=== PATIENT | female | born 1995 ===

== ENCOUNTER 2017-07-31 16:27 | Emergency (ER) | payer MEDICAID ==
[2017-07-31 16:34] VITALS: RESP 18; O2SAT 98
--- NOTE | 2017-07-31 17:32 | ED PDOC ---
HPI: Neurologic - General Time Seen by Provider: 07/31/17 16:56 Chief Complaint (Nursing): Weakness/Neurological Deficit Chief Complaint (Provider): Left Facial Numbness and Weakness Source: patient Exam Limitations: no limitations - History of Present Illness Timing/Duration: other (x3days) Allergies/Adverse Reactions: Allergies No Known Allergies Allergy (Verified 05/24/16 13:43) Home Medications: Ambulatory Orders Nitrofurantoin Macrocrystals [Macrobid] 100 mg PO BID #14 cap 05/24/16 predniSONE [predniSONE Tab] 25 mg PO BID 10 Days tab 07/31/17 Additional Complaint(s): Zita Renner is a 22 year old female that presents to the ED with a chief complaint of left facial numbness and weakness that she has been experiencing for the past three days. Patient states that when she drinks, fluids comes out of her mouth. She reports that she has similar symptoms when she was 10 years old , but that they resolved on their own. Patient denies any headache, extremity paresthesias, weakness, rash, or medical problems. NIHSS Stroke Scale - Date/Time Evaluation Performed Date Performed: 07/31/17 When Was NIHSS Performed: Baseline - How Severe is the Stroke Level of Consciousness: 0=Alert LOC to Questions: 0=Both comments correct LOC to commands: 0=Obeys both correctly Best Gaze: 0=Normal Visual: 0=No visual loss Facial: 1=Minor asymmetry Motor Arm - Left: 0=No drift Motor Arm - Right: 0=No drift Motor Leg - Left: 0=No drift Motor Leg - Right: 0=No drift Limb Ataxia: 0=Absent Sensory: 0=Normal Best Language: 0=No aphasia Dysarthia: 0=Normal articulation Extinction & Inattention (Neglect): 0=Normal, no object Score: 1 Past Medical History Reviewed: Historical Data, Nursing Documentation, Vital Signs Vital Signs: Last Vital Signs Temp 98.2 F 07/31/17 16:29 Pulse 69 07/31/17 16:29 Resp 18 07/31/17 16:29 BP 133/81 07/31/17 16:29 Pulse Ox 98 07/31/17 16:29 - Medical History PMH: No Chronic Diseases - Family History Family History: States: Unknown Family Hx - Home Medications Home Medications: Ambulatory Orders Medication Instructions Recorded Nitrofurantoin Macrocrystals 100 mg PO BID #14 cap 05/24/16 [Macrobid] predniSONE [predniSONE Tab] 25 mg PO BID 10 Days tab 07/31/17 - Allergies Allergies/Adverse Reactions: Allergies Allergy/AdvReac Type Severity Reaction Status Date / Time No Known Allergies Allergy Verified 05/24/16 13:43 Review of Systems Skin: Negative for: Rash Neurological: Positive for: Weakness (Left faicla weakness), Numbness (Left facial numbness). Negative for: Headache, Other (Denies extremity paresthesias) Physical Exam - Reviewed Nursing Documentation Reviewed: Yes Vital Signs Reviewed: Yes - Physical Exam Appears: Positive for: Non-toxic, No Acute Distress Head Exam: Positive for: ATRAUMATIC, NORMOCEPHALIC Skin: Positive for: Normal Color, Warm. Negative for: Rash Eye Exam: Positive for: Normal appearance, EOMI, PERRL Neck: Positive for: Normal, Supple Cardiovascular/Chest: Positive for: Regular Rate, Rhythm. Negative for: Murmur Respiratory: Positive for: Normal Breath Sounds. Negative for: Wheezing Gastrointestinal/Abdominal: Positive for: Normal Exam, Soft. Negative for: Tenderness Back: Positive for: Normal Inspection. Negative for: L CVA Tenderness, R CVA Tenderness Extremity: Positive for: Normal ROM. Negative for: Deformity, Swelling Neurologic/Psych: Positive for: Alert, Oriented (x3), Cerebellar Tests (normal) , Gait (steady), Facial Droop (Left facial droop, forehead is affected). Negative for: Motor/Sensory Deficits (Negative pronator drift), Aphasia - ECG O2 Sat by Pulse Oximetry: 98 (RA) Pulse Ox Interpretation: Normal Medical Decision Making Medical Decision Making: Impression: Adam's Palsy Plan: * Prednisone 25 mg PO * Urine * Reevaluation Scribe Attestation: Documented by Stephanie Vale, acting as a scribe for Arianna Rush MD. Provider Scribe Attestation: All medical record entries made by the Scribe were at my direction and personally dictated by me. I have reviewed the chart and agree that the record accurately reflects my personal performance of the history, physical exam, medical decision making, and the department course for this patient. I have also personally directed, reviewed, and agree with the discharge instructions and disposition. Disposition - Clinical Impression Clinical Impression: Adam's palsy - Disposition Referrals: Sabino Barber, SANA, [employer] [Family Provider] - Disposition: Routine/Home Disposition Time: 17:24 Condition: STABLE Additional Instructions: USE ARTIFICIAL TEARS IN LEFT EYE NEEDED. Prescriptions: predniSONE [predniSONE Tab] 25 mg PO BID 10 Days tab Instructions: Adam Palsy (ED) Forms: [facility] ([place])
[2017-07-31 17:36] VITALS: BP 120/76; PULSE 79; TEMP 98
== END 2017-07-31 17:30 | disposition home or self-care (01) ==
LOC: H.ER 16:27
DX: G51.0 Bell's palsy (principal)